=== PATIENT | male | born 1975 | race Caucasian/White ===

== ENCOUNTER → 2023-10-17 07:09 | Outpatient (REF) | payer OTHER, SELFPAY | LOC: PAVMRI 07:09 | PROVIDERS: ATTENDING PHYSICIAN Physical Medicine & Rehabilitation | DX: M23.92 Unspecified internal derangement of left knee (principal) | CPT/HCPCS: 73721 ==

== ENCOUNTER 2023-10-20 19:27 | Emergency (ER) | payer OTHER, SELFPAY ==
[2023-10-20 19:43] VITALS: BP 145/105
--- NOTE | 2023-10-20 20:21 | ED.GENMED ---
Addendum entered and electronically signed by Marycarmen Burnham PA-C 10/24/23 10:59:
wound e coli; on keflex, sensitive;
no treat,ent change
Original Note:
History of Present Illness
General
Chief Complaint: Skin Problem
Source: patient
Exam Limitations: none
Time Seen by Provider: 10/20/23 19:57
Nursing documentation reviewed up to this point in time: agreed with
Travel History
Have you had any contact with someone who has COVID-19?: No
Do you have any symptoms of coronavirus? Fever > 100 degrees, chills, cough, shortness of breath, sore throat, loss of taste or smell, muscle aches, or headache?: No
History of Present Illness
History of Present Illness:
Pleasant 48-year-old male that presents with pain on his lower left buttock. He states it began yesterday and progressively worsened. Denies fever, chills, nausea or vomiting. Reports no chest pain or shortness of breath. He denies any drainage.
He states that he has never had an abscess.
Phy Exam
General Physical Exam
General Presentation: well appearing and mild distress
General age: appears stated age
General Skin: warm and dry
General Habitus: elderly
General Mental: alert
General Hydration: appears well hydrated
ENT Exam
ENT Exam: EOMI, pharynx normal, neck supple and normocephalic
Eye Exam
Eye Exam: PERRL, cornea clear and conjunctiva normal
Cardiovascular Exam
Cardiovascular Exam: regular rate/rhythm and no edema
Pulmonary Exam
Pulmonary Exam: lungs clear and no respiratory distress
Gastrointestinal Exam
Gastrointestinal Exam: non tender, soft and non distended
Auscultation of Abdomen: normal
Rectal Exam: normal external exam and other (Rectal abscess left buttocks)
Neurological Exam
Neurological Exam: alert and oriented x3
Musculoskeletal Exam
Musculoskeletal Exam: full ROM and no edema
Skin Exam
Skin Exam: normal color, warm/dry, no rash and no petechia
Psychiatric Exam
Psychiatric Exam: normal mood/affect
Course
Orders/Labs/Results
Orders:
Orders
10/20/23 20:15
CT Pelvis With Iv Contrast Urgent
Comment:
Reason For Exam: buttocks abscess
10/20/23 20:30
Complete Blood Count/With Diff Urgent
Comprehensive Metabolic Panel Urgent
Lactic Acid Urgent
Sed Rate [Erythrocyte Sed Rate] Urgent
Blood Culture Urgent
KHADRA Source: Blood/Venous
Specimen Description:
10/20/23 22:47
Cephalexin Monohydrate [Keflex] 500 mg PO NOW STA
10/20/23 23:05
Wound Culture [Wound/Abscess/Other Culture] Urgent
KHADRA Source: Abscess
Specimen Description:
Date Specimen was Collected: 10/20/23
Time Specimen was Collected: 23:00
Comment: left buttock
Abnormal Lab Results
10/20/23
20:30
WBC 13.4 H 10^3/uL
(4.8-10.8)
Absolute Neuts (auto) 11.0 H 10^3/uL
(1.4-6.5)
Absolute Monos (auto) 1.0 H 10^3/uL
(0.1-0.6)
Neutrophils % 82.0 H %
(42.2-75.2)
Lymphocytes % 9.5 L %
(20.5-51.1)
ESR 31 H mm/hour
(0-20)
BUN 21 H mg/dl
(9-20)
10/20/23 20:30
10/20/23 20:30
Vital Signs
Initial and Last Documented VS:
Initial Vital Signs
Temp Pulse Resp BP Pulse Ox
98.7 F 118 22 145/105 99
10/20/23 19:43 10/20/23 19:43 10/20/23 19:43 10/20/23 19:43 10/20/23 19:43
Last Documented Vital Signs
Temp Pulse Resp BP Pulse Ox
98.7 F 102 16 106/71 96
10/20/23 19:43 10/20/23 23:08 10/20/23 23:08 10/20/23 23:08 10/20/23 23:08
Procedures
Incision/Drainage/Joint Aspiration
Left Lower Distal:
Anethesia: 1% Lidocaine with Epi
Preparation: cleaned with Hibiclens
Type of procedure: incise
Nature of site: abscess
Description of abscess: greater than 3cm, complex and involved incision
Loculations broken up: Yes
How much fluid was obtained?: small amount
Fluid description: purulent
Treatment: packed with gauze and antibiotics started
Additional information:
Patient tolerated procedure well with no immediate adverse effects.
*Critical Care Note
Total Time (30-74mins, 75-104mins- exclusive of procedures): Not Applicable
ED Attending Note
-
Portions of this chart may have been created with voice recognition software.� Occasional wrong word or��sound alike� substitutions may have occurred due to the inherent limitations of voice recognition software.
Discharge Plan
Departure
Patient Disposition: Home (Routine Discharge)
Date of Disposition: 10/20/23
Time of Disposition: 22:47
Patient with high blood pressure during this ER visit?: Yes
Condition: Good
Discharge Problem:
Perianal abscess
Instructions: Wound Care (DC), How to Do a Sitz Bath, BLOOD PRESSURE, Skin Abscess
Prescriptions:
New
cephalexin 500 mg capsule
500 mg PO Q6H 10 Days Qty: 40 0RF
oxycodone-acetaminophen [Percocet] 5-325 mg tablet
1 tab PO Q6HPRN PRN (Reason: pain) Qty: 10 0RF
Referrals:
Wiliam Schaefer MD [Active] - Call in 1-3 days for appt
Silvano Bonilla MD [Family Provider] -
Activity Restrictions/Additional Instructions:
Your prescriptions were sent electronically to the pharmacy that you specified.
Please keep area as clean as possible. Return to the ER with any bleeding, or increased pain. You may take Tylenol or Motrin for pain. I have prescribed Percocet which has Tylenol in it. You can use this for breakthrough pain as long as you do
not exceed more than 3000 mg of Tylenol per day. Each dose of Percocet has 500 mg acetaminophen or Tylenol in it.
It was a pleasure meeting you and taking part in your care. We hope for your continued healing and wellness.
Please read discharge instructions in their entirety. However, they are for general education and may not describe your exact diagnosis at discharge. Information on your ER visit and medical conditions were discussed with you along with appropriate
follow up information...
If indicated, please take your medications as instructed and indicated on discharge paperwork.
Please schedule a follow up appointment as directed. Call to schedule an appointment
Please return to the emergency department with ANY change in, persisting, or worsening of symptoms. If any of your symptoms do not improve, or persist, or become more severe within 6-12 hours, please return to the emergency department for further
care.
Please return to the emergency department if you develop a headache, neck pain/stiffness, fever greater than 100.4F, chest pain, shortness of breath, persistent nausea, vomiting, slurred speech, difficulty walking, numbness/tingling, weakness, signs
of infection or any other symptoms that are worrisome to you.
If you have any questions or concerns please do not hesitate to call the Hospital at or E-mail me directly at [email or web address]
Interventions
Interventions:
*Risk Screen - Suicide Last Done: 10/20/23 19:43
*General Assessment Last Done: 10/20/23 19:43
*Neglect/Abuse Screening Last Done: 10/20/23 19:43
ED- Fall Risk Assessment Last Done: 10/20/23 19:43
*ED COVID-19 Vaccine History Last Done: 10/20/23 19:43
*Nursing Disposition Last Done: 10/20/23 23:19
ED-Skin Assessment Last Done: 10/20/23 20:38
Discharge Date and Time
Discharge Date/Time: 10/20/23 23:19
[2023-10-20 20:22] VITALS: BMI 33.7
[2023-10-20 20:33] VITALS: BP 129/91
[2023-10-20 20:42] LABS: % Basophils 0.4 % (0-2); % Eosinophils 0.4 % (0-6); % Immature Granulocytes 0.2 % (0-0.5); % Lymphocytes 9.5 % (20.5-51.1); % Monocytes 7.5 % (1.7-9.3); Absolute Basophils 0.1 10^3/uL (0-0.2); Absolute Eosinophils 0.1 10^3/uL (0-0.7); Absolute Lymphocytes 1.3 10^3/uL (1.2-3.4); Hematocrit 41.2 % (39.0-52.0); Hemoglobin 14.7 g/dL (13.0-18.0); Mean Corp Hgb Conc. 35.7 g/dL (33.0-37.0); Mean Corpuscular Hgb 30.8 pg (27.0-31.0); Mean Corpuscular Volume 86.4 fL (80.0-94.0); Mean Platelet Volume 9.2 fL (7.4-10.4); Nucleated Red Blood Cells % 0 % (-); Platelet Count 290 10^3/uL (130-400); Red Blood Cell Count 4.77 10^6/uL (4.70-6.10); Red Cell Dist. Width 11.7 % (11.5-14.5); White Blood Cell Count 13.4 10^3/uL (4.8-10.8)
[2023-10-20 20:55] LABS: ALT (SGPT) 17 U/L (0-50); AST (SGOT) 23 U/L (17-59); Albumin 4.5 g/dl (3.5-5.0); Alkaline Phosphatase 96 U/L (38-126); Blood Urea Nitrogen 21 mg/dl (9-20); Calcium 9.2 mg/dl (8.4-10.2); Carbon Dioxide 27 mmol/L (22-30); Chloride 102 mmol/L (98-107); Estimated Creatinine Clearance 111 ml/min; Glucose 91 mg/dl (70-99); Lactic Acid 1.8 mmol/L (0.7-2.0); Potassium 4.4 mmol/L (3.5-5.1); Sodium 136 mmol/L (135-145); Total Bilirubin 0.5 mg/dl (0.2-1.3); Total Protein 7.7 g/dl (6.3-8.2); eGFR > 60.00
[2023-10-20 20:59] LABS: Erythrocyte Sed Rate 31 mm/hour (0-20)
[2023-10-20] MEDS: KEFLEX 500 MG PO (23:05)
[2023-10-20 23:08] VITALS: BP 106/71
== END 2023-10-20 23:19 | disposition home or self-care (01) ==
LOC: EMR 19:27
PROVIDERS: EMERGENCY PHYSICIAN Student in an Organized Health Care Education/Training Program; FAMILY PHYSICIAN Family Medicine
DX: K61.0 Anal abscess (principal)
CPT/HCPCS: 99284; 10060; 72193; 80053; 83605; 85025; 85652; 87040; 87070; 87077; 87186; 87205; Q9967

== ENCOUNTER 2024-10-16 22:09 | Emergency (ER) | payer OTHER, SELFPAY ==
[2024-10-16 22:23] VITALS: BP 136/85
[2024-10-16 22:52] LABS: Lactic Acid 1.4 mmol/L (0.7-2.0)
[2024-10-16 22:53] LABS: ALT (SGPT) 16 U/L (0-50); AST (SGOT) 23 U/L (17-59); Alkaline Phosphatase 65 U/L (38-126); Blood Urea Nitrogen 18 mg/dl (9-20); Calcium 9.3 mg/dl (8.4-10.2); Carbon Dioxide 23 mmol/L (22-30); Chloride 101 mmol/L (98-107); Glucose 97 mg/dl (70-99); Potassium 4.4 mmol/L (3.5-5.1); Sodium 137 mmol/L (135-145); Total Bilirubin 0.8 mg/dl (0.2-1.3); Total Protein 8.4 g/dl (6.3-8.2); eGFR > 60.00
[2024-10-17 00:25] VITALS: BP 140/85
[2024-10-17 00:38] LABS: % Basophils 0.3 % (0-2); % Eosinophils 0.3 % (0-6); % Immature Granulocytes 1.1 % (0-0.5); % Lymphocytes 22.9 % (20.5-51.1); % Monocytes 8.1 % (1.7-9.3); % Neutrophils 67.3 % (42.2-75.2); Absolute Immature Granulocytes 0.1 10^3/uL (0-0.05); Absolute Lymphocytes 2.5 10^3/uL (1.2-3.4); Absolute Monocytes 0.9 10^3/uL (0.1-0.6); Absolute Neutrophils 7.3 10^3/uL (1.4-6.5); Hematocrit 38.4 % (39.0-52.0); Hemoglobin 13.3 g/dL (13.0-18.0); Mean Corp Hgb Conc. 34.6 g/dL (33.0-37.0); Mean Corpuscular Hgb 30.4 pg (27.0-31.0); Mean Corpuscular Volume 87.7 fL (80.0-94.0); Mean Platelet Volume 9.2 fL (7.4-10.4); Nucleated Red Blood Cells % 0 % (-); Platelet Count 341 10^3/uL (130-400); Red Blood Cell Count 4.38 10^6/uL (4.70-6.10); Red Cell Dist. Width 12.3 % (11.5-14.5); White Blood Cell Count 10.8 10^3/uL (4.8-10.8)
--- NOTE | 2024-10-17 01:27 | ED.GENMED ---
History of Present Illness
General
Chief Complaint: Anal/Rectal Problem
Source: patient
Exam Limitations: none
Time Seen by Provider: 10/17/24 01:11
History of Present Illness
History of Present Illness:
See MDM
Past History
Past History
ED Past Medical History: Other (Psoriasis)
ED Past Surgical History: None
Social History
Tobacco: Non-smoker
Alcohol: None
Phy Exam
Physical Exam
Physical Exam:
See MDM
Course
Orders/Labs/Results
Orders:
Orders
10/16/24 22:31
Complete Blood Count/With Diff Urgent
Comprehensive Metabolic Panel Urgent
Lactate Level [Lactic Acid] Urgent
10/17/24 01:27
Wound Culture [Wound/Abscess/Other Culture] Urgent
KHADRA Source: Abscess
Specimen Description:
Comment: Right perianal
Sulfamethox./Trimethoprim Ds [Bactrim Ds 800 mg/160 mg] 1 tablet PO NOW STA
Abnormal Lab Results
10/16/24
22:31
RBC 4.38 L 10^6/uL
(4.70-6.10)
Hct 38.4 L %
(39.0-52.0)
Abs Immat Gran (auto) 0.1 H 10^3/uL
(0-0.05)
Absolute Neuts (auto) 7.3 H 10^3/uL
(1.4-6.5)
Absolute Monos (auto) 0.9 H 10^3/uL
(0.1-0.6)
Immature Gran % 1.1 H %
(0-0.5)
Total Protein 8.4 H g/dl
(6.3-8.2)
10/16/24 22:31
10/16/24 22:31
Vital Signs
Initial and Last Documented VS:
Initial Vital Signs
Temp Pulse Resp BP Pulse Ox
98.8 F 87 18 136/85 99
10/16/24 22:23 10/16/24 22:23 10/16/24 22:23 10/16/24 22:23 10/16/24 22:23
Last Documented Vital Signs
Temp Pulse Resp BP Pulse Ox
98.8 F 86 17 140/85 98
10/16/24 22:23 10/17/24 00:25 10/17/24 00:25 10/17/24 00:25 10/17/24 00:25
Procedures
Incision/Drainage/Joint Aspiration
Right medial perirectal:
Anethesia: 1% Lidocaine
Preparation: cleaned with alcohol wipe
Type of procedure: drain
Nature of site: abscess
Description of abscess: greater than 3cm
Loculations broken up: Yes
How much fluid was obtained?: large amount
Fluid description: purulent
Treatment: left open for drainage
MDM/Problems Addressed
Differential Diagnosis Includes:
HPI and MDM Narrative:
49-year-old male presenting with recurrent perianal abscess. Patient states he noted the swelling has recurred over the past few days. He was seen in the emergency department several months back requiring drainage. He does acknowledge that he
never followed up with a colorectal surgeon. He did follow-up with GI but has not seen a surgeon.
On exam, patient has palpable perianal abscess to the right. It does not appear to track into the rectum. Patient gave verbal consent for I&D. Patient tolerated procedure well with significant amount of discharge expressed. Loculations broken
up. Will start Bactrim
Physical exam
General: Well appearing and non-toxic
HEENT: protecting airway
Neck: appears supple
CV: No evidence of cyanosis
Resp: No accessory muscle use
Abd: Non-distended
Back: Right perirectal abscess
Extremities: No deformities
Neuro: alert
Psych: Normal affect
Skin: Intact
Problems Addressed including Acute and Chronic Conditions affecting care:
1. Perirectal abscess
Acuity: acute
Prognosis: stable
Details: After I&D, all symptoms resolved. Will start Bactrim. Discussed the importance of colorectal follow-up
Differential Diagnosis (but not limited to): Perirectal abscess, cellulitis
Testing considered: CT abdomen/pelvis
Drug therapy (if applicable): OTC meds, please see d/c instruction regarding Rx drugs
Amount and/or Complexity of Data Reviewed
Clinical info obtained from: Patient
External data reviewed: N/A
Labs I independently reviewed (but not limited to): N/A
Radiology: N/A
Pulse Ox: not hypoxic
EKG independently reviewed: N/A
Food Service: N/A
Critical Care: N/A
Risk of Complication:
Social Determinants of health: Good social support
Discussed with other providers: N/A
Escalation of Care includes Admit/Obs: After being observed in the Emergency Department, pt stable for discharge.
Occasional wrong word or 'sound a like' substitutions may have occurred due to the inherent limitations of voice recognition software. Read the chart carefully and recognize, using context, where substitutions have occurred.
*Critical Care Note
Total Time (30-74mins, 75-104mins- exclusive of procedures): Not Applicable
ED Attending Note
-
Portions of this chart may have been created with voice recognition software.� Occasional wrong word or��sound alike� substitutions may have occurred due to the inherent limitations of voice recognition software.
Discharge Plan
Departure
Patient Disposition: Home (Routine Discharge)
Date of Disposition: 10/17/24
Time of Disposition: 01:27
Patient with high blood pressure during this ER visit?: No
Discharge Problem:
Perianal abscess
Instructions: How to Do a Sitz Bath
Prescriptions:
New
sulfamethoxazole-trimethoprim [Bactrim DS] 800-160 mg tablet
1 tab PO BID 7 Days Qty: 14 0RF
No Action
cephalexin 500 mg capsule
500 mg PO Q6H 10 Days Qty: 40 0RF
oxycodone-acetaminophen [Percocet] 5-325 mg tablet
1 tab PO Q6HPRN PRN (Reason: pain) Qty: 10 0RF
Referrals:
Wiliam Schaefer MD [Active] -
Vadim Torres MD [Family Provider] -
Activity Restrictions/Additional Instructions:
Watch for worsening signs of infection: fever over 100.5', increasing pain, red streaks around wound or swelling. If any of these happen, return to ED promptly. Make sure that you take all your antibiotics as directed and finish your prescription
even if you feel better before the bottle is empty.
Please make an appointment to see the colorectal surgeon.
Interventions
Interventions:
*Risk Screen - Suicide Last Done: 10/16/24 22:23
*General Assessment Last Done: 10/16/24 22:23
*Neglect/Abuse Screening Last Done: 10/16/24 22:23
ED-Skin Assessment Last Done: 10/17/24 00:25
Discharge Date and Time
Print Language: [email or web address]
[2024-10-17] MEDS: BACTRIM DS 800 MG/160 MG 1 TABLET PO (02:19)
== END 2024-10-17 02:39 | disposition home or self-care (01) ==
LOC: EMR 22:09
PROVIDERS: EMERGENCY PHYSICIAN Student in an Organized Health Care Education/Training Program; FAMILY PHYSICIAN Internal Medicine
DX: K61.0 Anal abscess (principal); L40.9 Psoriasis, unspecified
CPT/HCPCS: 99283; 10060; 80053; 83605; 85025; 87070; 87205